=== PATIENT | female | born 1970 | race Caucasian/White ===

== ENCOUNTER 2016-07-12 09:06 | Emergency (ER) | payer OTHER ==
[~2016-07-12] VITALS: Ht 165.1 cm; Wt 104.3 kg
[~2016-07-12 09:06] MED LIST: CYCL10TA PO; ESOM1CAP5 PO; EXCETAB80 PO; FERRO SEQUEL OR; IBUP800T23 PO; L-LY500C2 PO; LIDO2GEL8 EX; LIDO3CRE14 TOP; MAGN500C PO; MAXA10TA14 PO; MELO7.5T6 PO; NAPR220T8 PO; NP T90TA PO; OMEG100011 PO; OMEP40CA2 PO; OXYC-517 PO; OXYC1TAB23 PO; PROBCAP4 PO; SERT-138 PO; SERT50TA PO; SUMA100T2 PO; SUMA6KIT SC; TRAM50TA2 PO; VALT1TAB PO; VITA10006 PO; VYVA50CA PO; XANA0.25 PO; topamax OR
[2016-07-12] MEDS ORDERED: OMEP40CA2 PO (09:20)
--- NOTE | 2016-07-12 11:04 | REP ---
Clinical: Fall on outstretched hand. Technique: AP and lateral views of the right humerus. Findings: Osseous structures joint spaces and surrounding soft tissues appear relatively normal. Along the inferior margin of the glenoid rim is a small loose body which may reflect sequelae of old injury and/or arthritic changes. No acute fracture dislocation identified involving the humerus. Impression: Loose body inferior to the glenoid rim may reflect old injury or degenerative disease. Normal humerus without acute fracture or dislocation. Signed by Zander Johnson MD 07/12/2016 10:55 A
--- NOTE | 2016-07-12 11:06 | REP ---
Clinical: Trauma. Technique: Internal rotation, external rotation, and Y view of the right shoulder. Findings: A suspected small loose body is identified along the inferior rim of the glenoid. Differential diagnosis would include acute fracture and should be correlated clinically. The acromioclavicular joint appears normal. The humeral head appears intact. Subacromial space is normal. Impression: Chronic loose body versus acute fracture along the inferior margin of the glenoid rim. Correlation is required. Signed by Zander Johnson MD 07/12/2016 10:57 A
[2016-07-12 11:30] VITALS: BP 139/82
[2016-07-12] MEDS ORDERED: TYLETAB14 PO (11:32)
[2016-07-12] MEDS ORDERED: IBUP80TA PO (11:32)
== END 2016-07-12 11:40 | disposition home or self-care (01) ==
LOC: M ED 10:39
DX: S42.144A Nondisplaced fracture of glenoid cavity of scapula, right shoulder, initial encounter for closed fracture (principal); W10.9XXA Fall (on) (from) unspecified stairs and steps, initial encounter; Y92.019 Unspecified place in single-family (private) house as the place of occurrence of the external cause; Y93.89 Activity, other specified; Y99.8 Other external cause status; F41.9 Anxiety disorder, unspecified; F32.9 Major depressive disorder, single episode, unspecified; K21.9 Gastro-esophageal reflux disease without esophagitis; Z79.899 Other long term (current) drug therapy; Z88.0 Allergy status to penicillin; Z91.018 Allergy to other foods

== ENCOUNTER → 2016-12-08 | Outpatient (REF) | payer OTHER ==
[~2016-12-08] MED LIST changes: +IBUP1TAB7 PO; -IBUP800T23 PO; +IBUP80TA PO; +LIDO2GEL5 EX; -LIDO2GEL8 EX; -MELO7.5T6 PO; +MELO7.5T7 PO; +NAPR1TAB41 PO; -NAPR220T8 PO; +TYLETAB14 PO; -VYVA50CA PO; +VYVA50CA4 PO
[2016-12-08 16:13] LABS: BASO % 0.4 % (0.0-1.0); EOS # 0.3 10^3/uL (0.0-0.50); EOS % 4.6 % (0.0-3.0); IMMATURE GRANULOCYTE % 0.3 % (0-0); LYMPH # 2.6 10^3/uL (1.5-4.5); LYMPH % 35.6 % (24.0-44.0); MEAN CORPUSCULAR HEMOGLOBIN 20.5 pg (27.0-33.0); MEAN CORPUSCULAR HGB CONC 29.1 g/dl (32.0-36.5); MONO # 0.4 10^3/uL (0.0-0.8); NEUTROPHILS # 3.9 10^3/uL (1.8-7.7); NEUTROPHILS % 54.1 % (36.0-66.0); PLATELET COUNT, AUTOMATED 381 10^3/uL (150-450); RED CELL DISTRIBUTION WIDTH 17.2 % (11.5-14.5); WHITE BLOOD COUNT 7.2 10^3/uL (4.0-10.0)
[2016-12-08 16:39] LABS: ADD MORPHOLOGY? YES; MEAN CORPUSCULAR VOLUME 70.3 fl (80.0-96.0)
[2016-12-08 16:45] LABS: FREE T4 0.92 NG/DL (0.76-1.46)
[2016-12-08 18:35] LABS: ANISOCYTOSIS 2+; HYPOCHROMASIA 2+; MICROCYTOSIS 2+
== END ==
LOC: M LABDRAW1 11:10
PROVIDERS: ATTEND Student in an Organized Health Care Education/Training Program
DX: D64.9 Anemia, unspecified (principal); E66.9 Obesity, unspecified; Z13.220 Encounter for screening for lipoid disorders

== ENCOUNTER → 2017-01-03 | Outpatient (CLI) | payer OTHER ==
--- NOTE | 2017-01-03 14:23 | REPMRS ---
Patient History The patient states she has not had a clinical breast exam in over a year. Patient had first child at age 36. Family history of breast cancer in sister at age 30 and breast cancer in maternal cousin at age 43. Digital Woman Screen Mammo: January 03, 2017 - Exam #: [id number] Bilateral CC and MLO view(s) were taken. Technologist: Roshni Boyer, Technologist Prior study comparison: May 13, 2013, bilateral digital mammo screening bilat, performed at [facility]. August 03, 2010, digital bilateral screening mammo, performed at [facility]. FINDINGS: There are scattered fibroglandular densities. There has been no change in the appearance of the mammogram from the prior studies. There is a mild amount of scattered fibroglandular density which is fairly symmetric. There is no interval development of dominant mass, architectural distortion, or clustered microcalcification suggestive of malignancy. ASSESSMENT: BI-RADS/ACR category 1 mammogram. Negative. Recommendation Breast MRI of both breasts in 6 months. Routine screening mammogram in 1 year (for women over age 40). This patient's Lifetime Breast Cancer RIsk is estimated at 29.7 %. Annual screening Breast MRI scanniing is recommended for patient's whose lifetime risk assessment is over 20%. This mammogram was interpreted with the aid of an FDA-approved computer-aided dectection system. Electronically Signed By: Magan Alarcon MD 01/03/17 [id number]
== END ==
LOC: M WHC 11:12
PROVIDERS: ATTEND Family Medicine
DX: Z12.31 Encounter for screening mammogram for malignant neoplasm of breast (principal)

== ENCOUNTER 2018-01-04 09:25 | Emergency (ER) | payer OTHER ==
[2018-01-04] MEDS: NS 1,000 ML IV (10:15)
[2018-01-04] MEDS: MORPHINE 4 MG/ML 1ML VIAL/SYRINGE (J2270) IV (10:15)
[2018-01-04 10:34] LABS: BASO % 0.4 % (0.0-1.0); EOS # 0.1 10^3/uL (0.0-0.50); EOS % 1.1 % (0.0-3.0); HEMATOCRIT 34.6 % (36.0-47.0); HEMOGLOBIN 10.2 g/dl (12.0-15.5); IMMATURE GRANULOCYTE % 0.3 % (0-3.0); LYMPH # 3.7 10^3/uL (1.5-4.5); MEAN CORPUSCULAR HGB CONC 29.5 g/dl (32.0-36.5); MEAN CORPUSCULAR VOLUME 67.7 fl (80.0-96.0); MONO # 0.5 10^3/uL (0.0-0.8); MONO % 5.5 % (0.0-5.0); NEUTROPHILS # 5.3 10^3/uL (1.8-7.7); NEUTROPHILS % 54.7 % (36.0-66.0); PLATELET COUNT, AUTOMATED 423 10^3/uL (150-450); RED BLOOD COUNT 5.11 10^6/uL (4.00-5.40); RED CELL DISTRIBUTION WIDTH 18.6 % (11.5-14.5); WHITE BLOOD COUNT 9.7 10^3/uL (4.0-10.0)
[2018-01-04 10:36] LABS: KETONE, URINE AUTO RFX NEGATIVE (NEGATIVE); LEUKOCYTE ESTERASE UR AUTO RFX NEGATIVE (NEGATIVE); MUCUS, URINE RFX SMALL (NEGATIVE); NITRITE, URINE AUTO RFX NEGATIVE (NEGATIVE); RBC, URINE AUTO RFX 2 /HPF (0-3); SPECIFIC GRAVITY UR AUTO RFX 1.019 (1.002-1.035); SQUAM EPITHELIAL CELL UR AURFX 3 /HPF (0-6); WBC, URINE AUTO RFX 0 /HPF (0-3)
[2018-01-04 11:03] LABS: ALBUMIN 3.5 GM/DL (3.2-5.2); ALBUMIN/GLOBULIN RATIO 0.92 (1.00-1.93); ALKALINE PHOSPHATASE 89 U/L (45-117); ALT/SGPT 15 U/L (12-78); ANION GAP 8 MEQ/L (8-16); AST/SGOT 10 U/L (7-37); BILIRUBIN,DIRECT < 0.1 MG/DL (0.0-0.2); BILIRUBIN,TOTAL 0.3 MG/DL (0.2-1.0); BLOOD UREA NITROGEN 20 MG/DL (7-18); CALCIUM LEVEL 9.2 MG/DL (8.5-10.1); CARBON DIOXIDE LEVEL 24 MEQ/L (21-32); CHLORIDE LEVEL 105 MEQ/L (98-107); CREATININE FOR GFR 0.68 MG/DL (0.55-1.30); GLOMERULAR FILTRATION RATE > 60.0 (>58); GLUCOSE, FASTING 92 MG/DL (70-100); LIPASE 158 U/L (73-393); POTASSIUM SERUM 4.2 MEQ/L (3.5-5.1); SODIUM LEVEL 137 MEQ/L (136-145); TOTAL PROTEIN 7.3 GM/DL (6.4-8.2)
[2018-01-04] MEDS ORDERED: ISOVUE-370 76% 100ML VIAL (Q9967) As Ordered (11:09)
== END 2018-01-04 14:44 | disposition home or self-care (01) ==
LOC: M ED 09:25
DX: R10.9 Unspecified abdominal pain (principal); R39.89 Other symptoms and signs involving the genitourinary system; E03.9 Hypothyroidism, unspecified; F41.9 Anxiety disorder, unspecified; F32.9 Major depressive disorder, single episode, unspecified; K21.9 Gastro-esophageal reflux disease without esophagitis; Z88.0 Allergy status to penicillin; Z91.018 Allergy to other foods; Z79.899 Other long term (current) drug therapy
CPT/HCPCS: J2270

== ENCOUNTER → 2018-01-31 | Outpatient (CLI) | payer OTHER | LOC: M WHC 13:44 | DX: Z12.31 Encounter for screening mammogram for malignant neoplasm of breast (principal); Z80.3 Family history of malignant neoplasm of breast | CPT/HCPCS: 77067 ==

== ENCOUNTER → 2018-02-13 | Outpatient (REF) | payer OTHER ==
[~2018-02-13] MED LIST changes: +KETO10TAB PO
[2018-02-13 12:34] LABS: CHOLESTEROL RISK RATIO 3.812 (<5)
[2018-02-13 13:55] LABS: HEMOGLOBIN A1c 5.5 %
== END ==
LOC: M LABDRAW1 09:33
PROVIDERS: ATTEND Student in an Organized Health Care Education/Training Program
DX: Z13.220 Encounter for screening for lipoid disorders (principal); Z13.1 Encounter for screening for diabetes mellitus

== ENCOUNTER → 2018-11-22 | Outpatient (CLI) | payer OTHER ==
[~2018-11-22] MED LIST changes: +SERT-141 PO; -SERT50TA PO
--- NOTE | 2018-11-22 08:51 | REP ---
Supine upright abdomen three views: There are two supine one upright views: The bowel gas pattern is normal. There are multiple pelvic calcifications, likely phleboliths. There are no other calcifications. The skeletal structures and soft tissues are otherwise unremarkable. Impression: Normal bowel gas pattern. Electronically Signed by Irwin Davies MD 11/22/2018 08:42 A
--- NOTE | 2018-11-22 10:04 | REP ---
Ultrasound for pelvic pain: Comparison is 01/04/2018. The patient had a hysterectomy in October 2015. The study is performed with transabdominal, endovaginal ultrasound assessment. The bladder is adequately distended. There is no uterus. The right ovary is not visualized. The left ovary measures 2.6 x 1.7 x 2.3 cm and is normal size. There is a 1.2 cm left ovarian follicle. There is no free fluid in the pelvis. Impression: 1.2 cm left ovarian follicle. The right ovary is not visualized. The uterus is surgically absent. Electronically Signed by Irwin Davies MD 11/22/2018 09:55 A
[2018-11-22 10:37] LABS: HEMATOCRIT 34.2 % (36.0-47.0); MEAN CORPUSCULAR HEMOGLOBIN 20.4 pg (27.0-33.0); MEAN CORPUSCULAR HGB CONC 29.2 g/dl (32.0-36.5); MEAN CORPUSCULAR VOLUME 69.9 fl (80.0-96.0); PLATELET COUNT, AUTOMATED 355 10^3/uL (150-450); RED BLOOD COUNT 4.89 10^6/uL (4.00-5.40); WHITE BLOOD COUNT 9.8 10^3/uL (4.0-10.0)
[2018-11-22 11:12] LABS: ALBUMIN 3.2 GM/DL (3.2-5.2); ALT/SGPT 13 U/L (12-78); BILIRUBIN,TOTAL 0.2 MG/DL (0.2-1.0); BLOOD UREA NITROGEN 23 MG/DL (7-18); CALCIUM LEVEL 8.7 MG/DL (8.5-10.1); CARBON DIOXIDE LEVEL 24 MEQ/L (21-32); CHLORIDE LEVEL 105 MEQ/L (98-107); CHOLESTEROL LEVEL 198 MG/DL (<200); CHOLESTEROL RISK RATIO 4.125 (<5); CREATININE FOR GFR 0.72 MG/DL (0.55-1.30); FREE T4 0.68 NG/DL (0.76-1.46); GLOMERULAR FILTRATION RATE > 60.0 (>58); GLUCOSE, FASTING 82 MG/DL (70-100); HDL CHOLESTEROL 48 MG/DL (>40); LDL CHOLESTEROL 92 MG/DL (<100); NON-HDL-C 150 MG/DL; POTASSIUM SERUM 4.4 MEQ/L (3.5-5.1); SODIUM LEVEL 137 MEQ/L (136-145); TOTAL PROTEIN 7.1 GM/DL (6.4-8.2); TRIGLYCERIDES LEVEL 289 MG/DL (<150)
[2018-11-22 12:14] LABS: HEMOGLOBIN A1c 5.4 %
== END ==
LOC: M LAB 08:01 → M RAD 08:01
PROVIDERS: ATTEND Student in an Organized Health Care Education/Training Program
DX: R10.2 Pelvic and perineal pain (principal); R14.0 Abdominal distension (gaseous)

== ENCOUNTER → 2018-12-10 | Outpatient (CLI) | payer OTHER ==
[~2018-12-10] MED LIST changes: -OMEP40CA2 PO; +OMEP40CA97 PO
[2018-12-10 09:22] LABS: PERCENT SATURATION 5.1 % (13.2-45.0)
== END ==
LOC: M LAB 07:49
PROVIDERS: ATTEND Student in an Organized Health Care Education/Training Program
DX: D64.9 Anemia, unspecified (principal); R10.33 Periumbilical pain

== ENCOUNTER → 2019-01-28 | Outpatient (CLI) | payer OTHER ==
--- NOTE | 2019-01-28 08:59 | REP ---
Clinical: Right upper quadrant pain. Technique: Real time walsh scale and color ultrasound examination using curved array transducer. Findings: The liver is enlarged and hyperechoic suggesting hepatomegaly and fatty infiltration. Small area of focal fatty sparing adjacent to the gallbladder fossa noted. No discrete focal hepatic lesion identified. The pancreas appears normal. The spleen is enlarged and measures 13.2 x 6.0 x 13.6 cm ([id number]) without focal splenic lesion appreciated. Gallbladder is normal and without gallstones, wall thickening, or pericholecystic fluid. No biliary ductal dilatation is appreciated and the common bile duct measures 3.1 mm diameter. Bilateral kidneys are normal in reniform shape without hydronephrosis. Right kidney measures 12.0 x 5.0 x 4.3 cm. Left kidney measures 11.7 x 4.5 x 4.8 cm. No ascites. Visualized abdominal aorta appears normal. Impression: 1. Hepatic steatosis and hepatosplenomegaly without focal hepatic or splenic lesions identified. Electronically Signed by Zander Johnson MD 01/28/2019 08:51 A
== END ==
LOC: M RAD 07:51
PROVIDERS: ATTEND Internal Medicine Gastroenterology
DX: R10.11 Right upper quadrant pain (principal); K76.0 Fatty (change of) liver, not elsewhere classified; R16.2 Hepatomegaly with splenomegaly, not elsewhere classified

== ENCOUNTER 2019-02-17 07:44 | Day surgery (SDC) | payer OTHER ==
[~2019-02-17] VITALS: Ht 165.1 cm; Wt 122.9 kg
[~2019-02-17 07:44] MED LIST changes: +CALCIUM MAG ZINC PO; +LIDOCAINE 2% INJ 100 MG/5 ML SDV (FOR ANES.) As Ordered ONE; +NS 1,000 ML IV ONE; +PANT40TA3 PO; +PROPOFOL 200 MG/20 ML VIAL As Ordered ONE; +SUCR1TA PO; +stomach med
--- NOTE | 2019-02-17 09:33 | ROOR ---
Patient Name: Avani Pena Procedure Date: 02/17/2019 8:50 AM Date of : 1970 Age: 48 Room: [facility] Gender: Female Note Status: Finalized Procedure: Upper GI endoscopy Indications: Iron deficiency anemia, Dyspepsia Providers: Shalom Phillips MD Referring MD: JM WASHBURN MD Requesting Provider: Medicines: Monitored Anesthesia Care Complications: No immediate complications. Procedure: Pre-Anesthesia Assessment: - Prior to the procedure, a History and Physical was performed, and patient medications and allergies were reviewed. The patient is competent. The risks and benefits of the procedure and the sedation options and risks were discussed with the patient. All questions were answered and informed consent was obtained. Patient identification and proposed procedure were verified by the physician, the nurse and the anesthesiologist in the procedure room. Mental Status Examination: alert and oriented. Airway Examination: normal oropharyngeal airway and neck mobility. Respiratory Examination: clear to auscultation. CV Examination: normal. Prophylactic Antibiotics: The patient does not require prophylactic antibiotics. Prior Anticoagulants: The patient has taken no previous anticoagulant or antiplatelet agents. ASA Grade Assessment: II - A patient with mild systemic disease. After reviewing the risks and benefits, the patient was deemed in satisfactory condition to undergo the procedure. The anesthesia plan was to use monitored anesthesia care (MAC). Immediately prior to administration of medications, the patient was re-assessed for adequacy to receive sedatives. The heart rate, respiratory rate, oxygen saturations, blood pressure, adequacy of pulmonary ventilation, and response to care were monitored throughout the procedure. The physical status of the patient was re-assessed after the procedure. The Endoscope was introduced through the mouth, and advanced to the second part of duodenum. The upper GI endoscopy was accomplished without difficulty. The patient tolerated the procedure well. Findings: The Z-line was regular and was found 39 cm from the incisors. The examined esophagus was normal. Scattered mild inflammation characterized by erythema and granularity was found in the gastric antrum. Biopsies were taken with a cold forceps for Helicobacter pylori testing. Verification of patient identification for the specimen was done by the physician and nurse using the patient's name, date and medical record number. Estimated blood loss was minimal. The duodenal bulb and second portion of the duodenum were normal. Biopsies for histology were taken with a cold forceps for evaluation of celiac disease. Impression: - Z-line regular, 39 cm from the incisors. - Normal esophagus. - Gastritis. Biopsied. - Normal duodenal bulb and second portion of the duodenum. Biopsied. Recommendation: - Patient has a contact number available for emergencies. The signs and symptoms of potential delayed complications were discussed with the patient. Return to normal activities tomorrow. Written discharge instructions were provided to the patient. - Resume previous diet. - Continue present medications. - Await pathology results. - Telephone GI clinic for pathology results in 2 weeks. - Return to primary care physician. Shalom Phillips MD Shalom Phillips MD 02/17/2019 9:33:17 AM Electronically signed by Shalom Phillips MD Number of Addenda: 0 Note Initiated On: 02/17/2019 8:50 AM Estimated Blood Loss: Estimated blood loss was minimal.
--- NOTE | 2019-02-17 09:38 | ROOR ---
Patient Name: Avani Pena Procedure Date: 02/17/2019 8:50 AM Date of : 1970 Age: 48 Room: [facility] Gender: Female Note Status: Finalized Procedure: Colonoscopy Indications: Chronic diarrhea, Hematochezia Providers: Shalom Phillips MD Referring MD: JM WASHBURN MD Requesting Provider: Medicines: Monitored Anesthesia Care Complications: No immediate complications. Procedure: Pre-Anesthesia Assessment: - Prior to the procedure, a History and Physical was performed, and patient medications and allergies were reviewed. The patient is competent. The risks and benefits of the procedure and the sedation options and risks were discussed with the patient. All questions were answered and informed consent was obtained. Patient identification and proposed procedure were verified by the physician, the nurse and the anesthesiologist in the procedure room. Mental Status Examination: alert and oriented. Airway Examination: normal oropharyngeal airway and neck mobility. Respiratory Examination: clear to auscultation. CV Examination: normal. Prophylactic Antibiotics: The patient does not require prophylactic antibiotics. Prior Anticoagulants: The patient has taken no previous anticoagulant or antiplatelet agents. ASA Grade Assessment: II - A patient with mild systemic disease. After reviewing the risks and benefits, the patient was deemed in satisfactory condition to undergo the procedure. The anesthesia plan was to use monitored anesthesia care (MAC). Immediately prior to administration of medications, the patient was re-assessed for adequacy to receive sedatives. The heart rate, respiratory rate, oxygen saturations, blood pressure, adequacy of pulmonary ventilation, and response to care were monitored throughout the procedure. The physical status of the patient was re-assessed after the procedure. The Colonoscope was introduced through the anus and advanced to the terminal ileum, with identification of the appendiceal orifice and IC valve. The colonoscopy was performed without difficulty. The patient tolerated the procedure well. The quality of the bowel preparation was good. The terminal ileum, ileocecal valve, appendiceal orifice, and rectum were photographed. Scope insertion time was 3 minutes. Scope withdrawal time was 11 minutes. The total duration of the procedure was 14 minutes. Findings: The perianal and digital rectal examinations were normal. The terminal ileum appeared normal. Normal mucosa was found from sigmoid to cecum. Biopsies for histology were taken with a cold forceps from the right colon and left colon for evaluation of microscopic colitis. Verification of patient identification for the specimen was done by the physician and nurse using the patient's name, date and medical record number. Estimated blood loss was minimal. Multiple medium-mouthed diverticula were found in the sigmoid colon. There was no evidence of diverticular bleeding. A patchy area of moderately congested, inflamed and nodular mucosa was found in the rectum. Biopsies were taken with a cold forceps for histology. Non-bleeding external and internal hemorrhoids were found during retroflexion. The hemorrhoids were small. Impression: - The examined portion of the ileum was normal. - Normal mucosa from sigmoid to cecum. Biopsied. - Moderate diverticulosis in the sigmoid colon. There was no evidence of diverticular bleeding. - Congested, inflamed and nodular mucosa in the rectum. Biopsied. - Non-bleeding external and internal hemorrhoids. Recommendation: - Patient has a contact number available for emergencies. The signs and symptoms of potential delayed complications were discussed with the patient. Return to normal activities tomorrow. Written discharge instructions were provided to the patient. - High fiber diet. - Continue present medications. - Await pathology results. - Repeat colonoscopy in 5-10 years for screening purposes. - Telephone GI clinic for pathology results in 2 weeks. - Return to primary care physician. Shalom Phillips MD Shalom Phillips MD 02/17/2019 9:37:56 AM Electronically signed by Shalom Phillips MD Number of Addenda: 0 Note Initiated On: 02/17/2019 8:50 AM Estimated Blood Loss: Estimated blood loss was minimal.
[2019-02-17 10:09] VITALS: BP 127/94
[2019-02-17] MEDS ORDERED: PROPOFOL 200 MG/20 ML VIAL As Ordered ONE (10:17)
== END 2019-02-17 10:42 | disposition home or self-care (01) ==
LOC: M OPP 07:44
PROVIDERS: ATTEND Internal Medicine Gastroenterology
DX: K64.8 Other hemorrhoids (principal); K62.89 Other specified diseases of anus and rectum; K92.1 Melena; K52.9 Noninfective gastroenteritis and colitis, unspecified; K57.30 Diverticulosis of large intestine without perforation or abscess without bleeding; K29.70 Gastritis, unspecified, without bleeding; D50.9 Iron deficiency anemia, unspecified; Z88.0 Allergy status to penicillin; Z91.018 Allergy to other foods; Z79.899 Other long term (current) drug therapy

== ENCOUNTER 2019-12-03 11:15 | Emergency (ER) | payer OTHER ==
[~2019-12-03] VITALS: Ht 162.6 cm; Wt 136.9 kg
[~2019-12-03 11:15] MED LIST changes: +CYCL-707 PO; -CYCL10TA PO; -LIDOCAINE 2% INJ 100 MG/5 ML SDV (FOR ANES.) As Ordered ONE; -NS 1,000 ML IV ONE; +PANT40TA29 PO; -PANT40TA3 PO; -PROPOFOL 200 MG/20 ML VIAL As Ordered ONE
[2019-12-03 11:16] VITALS: BP 144/88
[2019-12-03] MEDS ORDERED: OMEP40CA97 PO (11:23)
[2019-12-03] MEDS ORDERED: ZOLO25TA PO (11:23)
[2019-12-03] MEDS ORDERED: ZOLO100T PO (11:36)
== END 2019-12-03 11:43 | disposition home or self-care (01) ==
LOC: M ED 11:15
DX: Z76.0 Encounter for issue of repeat prescription (principal); K21.9 Gastro-esophageal reflux disease without esophagitis; G43.909 Migraine, unspecified, not intractable, without status migrainosus; G47.33 Obstructive sleep apnea (adult) (pediatric); L40.9 Psoriasis, unspecified; Z79.899 Other long term (current) drug therapy; Z88.0 Allergy status to penicillin; Z91.018 Allergy to other foods

== ENCOUNTER → 2020-01-29 | Outpatient (CLI) | payer OTHER ==
[~2020-01-29] MED LIST changes: +ZOLO100T PO; +ZOLO25TA PO
[2020-01-29 11:40] LABS: BASO % 0.2 % (0.0-1.0); EOS # 0.1 10^3/uL (0.0-0.5); HEMATOCRIT 37.4 % (36.0-47.0); HEMOGLOBIN 11.3 g/dl (12.0-15.5); LYMPH # 3.5 10^3/uL (1.5-5.0); LYMPH % 35.5 % (24.0-44.0); MEAN CORPUSCULAR HEMOGLOBIN 21.3 pg (27.0-33.0); MEAN CORPUSCULAR HGB CONC 30.2 g/dl (32.0-36.5); MEAN CORPUSCULAR VOLUME 70.6 fl (80.0-96.0); MONO # 0.4 10^3/uL (0.0-0.8); MONO % 4.4 % (0.0-5.0); NEUTROPHILS # 5.8 10^3/uL (1.5-8.5); NEUTROPHILS % 58.6 % (36.0-66.0); PLATELET COUNT, AUTOMATED 346 10^3/uL (150-450); WHITE BLOOD COUNT 9.8 10^3/uL (4.0-10.0)
[2020-01-29 12:14] LABS: ALBUMIN 3.2 GM/DL (3.2-5.2); ALT/SGPT 18 U/L (12-78); BILIRUBIN,TOTAL 0.3 MG/DL (0.2-1.0); BLOOD UREA NITROGEN 16 MG/DL (7-18); CALCIUM LEVEL 8.8 MG/DL (8.5-10.1); CARBON DIOXIDE LEVEL 23 MEQ/L (21-32); CHLORIDE LEVEL 109 MEQ/L (98-107); CREATININE FOR GFR 0.72 MG/DL (0.55-1.30); FERRITIN 22 NG/ML (8-252); FOLATE 11.6 NG/ML; FREE T4 0.86 NG/DL (0.76-1.46); GLOMERULAR FILTRATION RATE > 60.0 (>58); GLUCOSE, FASTING 88 MG/DL (70-100); POTASSIUM SERUM 4.1 MEQ/L (3.5-5.1); SODIUM LEVEL 140 MEQ/L (136-145); TOTAL PROTEIN 7.4 GM/DL (6.4-8.2); VITAMIN B12 LEVEL 471 PG/ML
== END ==
LOC: M LAB 09:46
PROVIDERS: ATTEND Student in an Organized Health Care Education/Training Program
DX: R10.2 Pelvic and perineal pain (principal); D64.9 Anemia, unspecified; R53.83 Other fatigue; R35.8 Other polyuria

== ENCOUNTER → 2020-02-10 | Outpatient (CLI) | payer OTHER ==
--- NOTE | 2020-02-10 12:42 | REP ---
INDICATION: PELVIC PAIN. Left pelvic pain. Status post prior hysterectomy 2016. COMPARISON: Comparison sonography November 22, 2018 and January 28, 2019. TECHNIQUE: Axial, coronal, and sagittal imaging planes utilized. T1 and T2 weighted scans are obtained with and without fat saturation in the usual fashion.. FINDINGS: Cortical and medullary bone signal intensity is normal in the bony pelvic ring and proximal femurs. The sacroiliac joints are unremarkable. Symphysis pubis shows no significant abnormality. No hip joint effusion is seen. The uterus is surgically absent. No free fluid is noted in the pelvis. Ovaries set somewhat high in the pelvis bilaterally but appear morphologically intact. There is a 2.0 cm follicle cyst in the left ovary. No pelvic mass is seen. No perineal abnormality is appreciated. Visualized bladder vogel are smooth. The visualized small and large bowel loops are unremarkable. Presacral soft tissues are not widened. No rectal or perirectal disease appreciated. IMPRESSION: Unremarkable MRI study of the pelvis. Post hysterectomy. No pelvic mass or free fluid. Normal ovaries. Small follicle cyst left ovary measuring 2 cm. <Electronically signed by Magan Alarcon > 02/10/20 2041
== END ==
LOC: M RAD 10:30
PROVIDERS: ATTEND Student in an Organized Health Care Education/Training Program
DX: R10.2 Pelvic and perineal pain (principal); Z90.79 Acquired absence of other genital organ(s)

== ENCOUNTER → 2020-08-10 | Outpatient (REF) | payer OTHER | LOC: M SFHCWAGY 17:13 | PROVIDERS: ATTEND Student in an Organized Health Care Education/Training Program | DX: Z12.4 Encounter for screening for malignant neoplasm of cervix (principal) ==